=== PATIENT | female | born 1990 | race Caucasian/White ===

== ENCOUNTER 2017-02-01 13:13 | Emergency (ER) | payer OTHER ==
[~2017-02-01] VITALS: Ht 170.2 cm; Wt 83.5 kg
[2017-02-01 15:15] VITALS: BP 122/79
== END 2017-02-01 16:05 | disposition home or self-care (01) ==
LOC: ED 13:13
DX: R51 Headache (principal)
CPT/HCPCS: J3030

== ENCOUNTER 2017-10-23 13:07 | Emergency (ER) | payer MEDICAID ==
[~2017-10-23] VITALS: Ht 170.2 cm; Wt 79.9 kg
[2017-10-23 13:17] VITALS: BP 126/75
== END 2017-10-23 13:58 | disposition home or self-care (01) ==
LOC: ED 13:07
DX: J06.9 Acute upper respiratory infection, unspecified (principal); R07.89 Other chest pain
CPT/HCPCS: Q0092